=== PATIENT | male | born 1970 | race Two or more races ===

== ENCOUNTER → 2022-02-09 | Emergency (ER) | payer OTHER ==
[~2022-02-09] VITALS: Ht 188 cm; Wt 94.8 kg
[~2022-02-09] MED LIST: CIPRO500 MG PO; GUAIF-DM-PSE S120 ML PO
== END | disposition left against medical advice (07) ==
LOC: ER 22:32
DX: Z53.21 Procedure and treatment not carried out due to patient leaving prior to being seen by health care provider (principal)

== ENCOUNTER 2022-04-27 19:10 | Emergency (ER) | payer OTHER ==
[~2022-04-27] VITALS: Ht 188 cm; Wt 95.7 kg
== END 2022-04-27 21:02 | disposition home or self-care (01) ==
LOC: ER 19:10
DX: M54.50 Low back pain, unspecified (principal); Z88.0 Allergy status to penicillin; Z88.8 Allergy status to other drugs, medicaments and biological substances